=== PATIENT | female | born 1990 | race Hispanic/Latino ===

== ENCOUNTER 2018-01-19 14:36 | Emergency (ER) | payer OTHER ==
[2018-01-19] MEDS ORDERED: NACL 0.9% 1000 ML 1,000 ML IV ONE (15:17)
[2018-01-19] MEDS ORDERED: TORADOL IV ONE (15:17)
--- NOTE | 2018-01-19 15:20 | Emergency Department Report ---
Chief Complaint: Urogenital-Female Stated Complaint: LEFT BREAST PAIN Time Seen by Provider: 01/19/18 15:16 - HPI History of Present Illness: 27-year-old female, who is one month status post delivery, presents to the emergency department with a one-week history of left breast tenderness, redness and Robinul for fever. She says the temperature is gotten as high as 103F. She took some ibuprofen last night and some Tylenol about 2 hours ago. She called her [employer] MANAGER, Dr. Mendez, who told her to go to the emergency department for evaluation. - ROS Review of Systems: Positive for breast tenderness, breast redness, fever Negative for shortness of breath, nausea, vomiting - Exam Vital Signs: Vital Signs 01/19/18 14:56 Temperature 100.2 F H Pulse Rate 116 H Respiratory 20 Rate Blood Pressure 127/68 O2 Sat by Pulse 100 Oximetry Physical Exam: Patient is awake and alert and in no acute distress. Mild tachycardia. Heart and lung sounds are normal to Auscultation MSE screening note: Focused history and physical exam performed. Due to findings the following was ordered: I have ordered a CBC, BMP. The patient will have an IV placed and will get vancomycin and Toradol and IV fluid ED Disposition for MSE Condition: Stable
--- NOTE | 2018-01-19 15:21 | Emergency Department Report ---
- General Chief complaint: Urogenital-Female Stated complaint: LEFT BREAST PAIN Time Seen by Provider: 01/19/18 15:16 Source: patient Mode of arrival: Ambulatory Limitations: No Limitations - History of Present Illness MD complaint: other -: Gradual, days(s) Tetanus Up to Date: yes Location: chest (L BREAST) Severity: severe Quality: aching Consistency: constant Improves with: none Worsens with: none Context: other () Associated symptoms: chills Treatments Prior to Arrival: OTC topical medication, NSAID - Related Data Previous Rx's Medication Instructions Recorded Last Taken Type Ferrous Sulfate [Feosol 325 MG tab] 325 mg PO BID #90 tablet 12/10/17 Unknown Rx Ibuprofen [Motrin 800 MG tab] 800 mg PO TID PRN #30 tablet 12/10/17 Unknown Rx oxyCODONE /ACETAMINOPHEN [Percocet 1 - 2 tab PO Q4HR PRN #30 tablet 12/10/17 Unknown Rx 5/325 mg] Clindamycin [Clindamycin CAP] 300 mg PO Q6H #40 capsule 01/19/18 Unknown Rx Allergies Allergy/AdvReac Type Severity Reaction Status Date / Time No Known Allergies Allergy Verified 12/10/17 09:36 Abscess Boil HPI - HPI Chief Complaint: Urogenital-Female Stated Complaint: LEFT BREAST PAIN Time Seen by Provider: 01/19/18 15:16 Home Medications: Previous Rx's Medication Instructions Recorded Last Taken Type Ferrous Sulfate [Feosol 325 MG tab] 325 mg PO BID #90 tablet 12/10/17 Unknown Rx Ibuprofen [Motrin 800 MG tab] 800 mg PO TID PRN #30 tablet 12/10/17 Unknown Rx oxyCODONE /ACETAMINOPHEN [Percocet 1 - 2 tab PO Q4HR PRN #30 tablet 12/10/17 Unknown Rx 5/325 mg] Clindamycin [Clindamycin CAP] 300 mg PO Q6H #40 capsule 01/19/18 Unknown Rx Allergies/Adverse Reactions: Allergies Allergy/AdvReac Type Severity Reaction Status Date / Time No Known Allergies Allergy Verified 12/10/17 09:36 ED Review of Systems ROS: Stated complaint: LEFT BREAST PAIN Other details as noted in HPI Comment: All other systems reviewed and negative Constitutional: no symptoms reported, chills, fever Eyes: denies: eye pain ENT: denies: ear pain, throat pain Respiratory: denies: cough, orthopnea Cardiovascular: other (HR RETURNED TO < 100 FEVER DEC. ). denies: chest pain , palpitations, dyspnea on exertion, orthopnea Endocrine: denies: excessive sweating, flushing, intolerance to cold, intolerance to heat Gastrointestinal: denies: abdominal pain, nausea, vomiting Genitourinary: denies: urgency, dysuria Musculoskeletal: denies: back pain Skin: lesions (BREAST RED AND PAINFUL; QUIT BREAST FEEDING; NOW 1 M POST ) , other (L BREAST PAIN) Neurological: denies: headache, weakness Psychiatric: denies: anxiety, depression Hematological/Lymphatic: denies: easy bleeding ED Past Medical Hx - Past Medical History Hx Hypertension: No Hx Congestive Heart Failure: No Hx Diabetes: No Hx Deep Vein Thrombosis: No Hx Renal Disease: No Hx Sickle Cell Disease: No Hx Seizures: No Hx Asthma: No Hx COPD: No Hx HIV: No - Surgical History Past Surgical History?: Yes Additional Surgical History: C section - Family History Family history: no significant - Social History Smoking Status: Current Every Day Smoker Substance Use Type: None - Medications Home Medications: Home Medications Medication Instructions Recorded Confirmed Last Taken Type Ferrous Sulfate [Feosol 325 MG tab] 325 mg PO BID #90 tablet 12/10/17 Unknown Rx Ibuprofen [Motrin 800 MG tab] 800 mg PO TID PRN #30 tablet 12/10/17 Unknown Rx oxyCODONE /ACETAMINOPHEN [Percocet 1 - 2 tab PO Q4HR PRN #30 tablet 12/10/17 Unknown Rx 5/325 mg] Clindamycin [Clindamycin CAP] 300 mg PO Q6H #40 capsule 01/19/18 Unknown Rx ED Physical Exam - General Limitations: No Limitations General appearance: alert, in no apparent distress - Head Head exam: Present: normocephalic, normal inspection - Eye Eye exam: Present: PERRL. Absent: conjunctival injection - ENT ENT exam: Present: normal exam, mucous membranes moist - Neck Neck exam: Present: normal inspection, full ROM. Absent: tenderness, meningismus - Respiratory Respiratory exam: Present: normal lung sounds bilaterally - Cardiovascular Cardiovascular Exam: Present: regular rate, tachycardia (FEVER) - GI/Abdominal GI/Abdominal exam: Present: soft, normal bowel sounds. Absent: distended, tenderness, guarding, rebound, rigid, diminished bowel sounds - Rectal Rectal exam: Present: deferred - Extremities Exam Extremities exam: Present: normal inspection, full ROM. Absent: tenderness - Back Exam Back exam: Present: normal inspection, full ROM. Absent: tenderness, CVA tenderness (R), CVA tenderness (L) - Neurological Exam Neurological exam: Present: alert, oriented X3, CN II-XII intact, normal gait. Absent: altered - Psychiatric Psychiatric exam: Present: normal affect, normal mood. Absent: depressed, agitated - Skin Skin exam: Present: warm, dry, intact, normal color, erythema (L BREAST ), other (CELLULITIS L BREAST PT QUIT BREAST FEEDING 1 WEEK OR SO AGO; SHE IS 1 M POST . NO FLAT. THAT WOULD NEED I/D. NO NIPPLE DRAINAGE. NO DIMPLING). Absent: rash, cyanosis, diaphoretic, urticaria, vesicles, petechiae, pallor, abrasion, ecchymosis - Expanded Skin Exam Expanded 1 - MASTITIS BETWEEN 12-3 OF LEFT BREAST. NO FLAT FOR I/D. FIRM CELLULITIC TISSUE; NO DRAINAGE; NO NIPPLE DRAINAGE; NO DIMPLING. ED Course Vital Signs 01/19/18 01/19/18 14:56 18:05 Temperature 100.2 F H 99.4 F Pulse Rate 116 H 95 H Respiratory 20 17 Rate Blood Pressure 127/68 Blood Pressure 118/47 [Left] O2 Sat by Pulse 100 98 Oximetry - Reevaluation(s) Reevaluation #1: 01/19/18 18:26 ITCHING AND RASH ON CHEST P VANC PREDNISONE AND BENADRYL PO ABC INTACT VSS IMPROVING HR AND FEVER PT REPORTS DEC PAIN DR SMALL PHONED AND GIVEN UPDATE ON THE PT CONDITION WILL DC HOME CAN FOLLOW UP IN THE AM W OFFICE. ED Medical Decision Making - Lab Data Result diagrams: 01/19/18 15:59 01/19/18 15:59 - Medical Decision Making IV FLUIDS VANC IV WBC NOTED IMPROVED VS RELIABLE FOR FOLLOW UP DC HOME W POC - Differential Diagnosis MASTITIS/CELLULITIS Critical care attestation.: If time is entered above; I have spent that time in minutes in the direct care of this critically ill patient, excluding procedure time. ED Disposition Clinical Impression: Cellulitis of breast, mastitis Disposition: TO HOME OR SELFCARE Is pt being admited?: No Does the pt Need Aspirin: No Condition: Stable Instructions: Mastitis (ED) Additional Instructions: WARM COMPRESSES WILL HELP WITH THE PAIN PAIN MEDICATIONS INSTRUCTED SOAK WITH EPSOM SALTS 20 MINUTES THREE TIMES PER DAY FOR 20 MINUTES AT A TIME - WILL HELP SOOTH THE AREA ACTIVITY TOLERATED DIET TOLERATED ANTIBIOTIC INSTRUCTED. TAKE WITH FOOD. SEE DR SMALL THIS WEEK TO BE SURE THIS IS RESOLVING. Prescriptions: Clindamycin [Clindamycin CAP] 300 mg PO Q6H #40 capsule Referrals: NICK SMALL MD [Staff Physician] - 3-5 Days Time of Disposition: 16:52
[2018-01-19] MEDS ORDERED: VANCOMYCIN VIAL 1,500 MG in NACL 0.9% 500 ML 500 ML IV ONE (16:00)
[2018-01-19] MEDS ORDERED: VANCOMYCIN/NS 1 GM/250 ML 1 GM/250 ML BAG IV SCH (16:00)
[2018-01-19 16:26] LABS: Basophils # (Auto) 0.1 K/mm3 (0.0-0.1); Basophils % (Auto) 0.4 % (0.0-1.8); Eosinophils # (Auto) 0.2 K/mm3 (0.0-0.4); Eosinophils % (Auto) 1.1 % (0.0-4.3); Hematocrit 31.2 % (30.3-42.9); Hemoglobin 9.9 gm/dl (10.1-14.3); Lymphocytes # (Auto) 1.5 K/mm3 (1.2-5.4); Lymphocytes % (Auto) 9.2 % (13.4-35.0); Mean Corpuscular HGB Conc 32 % (30-34); Mean Corpuscular Volume 75 fl (79-97); Monocytes % (Auto) 5.7 % (0.0-7.3); Platelet Count 312 K/mm3 (140-440); Red Blood Count 4.17 M/mm3 (3.65-5.03); Red Cell Distribution Width 18.6 % (13.2-15.2)
[2018-01-19 16:37] LABS: Mean Corpuscular Hemoglobin 24 pg (28-32)
[2018-01-19 16:44] LABS: BUN/Creatinine Ratio 15; Blood Urea Nitrogen 6 mg/dL (7-17); Calcium 9.5 mg/dL (8.4-10.2); Hemolysis Index 0
[2018-01-19] MEDS ORDERED: NORCO 10/325 PO ONE (16:56)
[2018-01-19 18:07] VITALS: BP 118/47
[2018-01-19] MEDS ORDERED: DELTASONE PO ONE (18:25)
[2018-01-19] MEDS ORDERED: BENADRYL PO ONE (18:25)
== END 2018-01-19 18:41 | disposition home or self-care (01) ==
LOC: ED 14:36
DX: O91.22 Nonpurulent mastitis associated with the puerperium (principal); N61.0 Mastitis without abscess; F17.200 Nicotine dependence, unspecified, uncomplicated
CPT/HCPCS: 36415; 80048; 85025; 96365; 96375; 99283; J1885; J3370; J7030; J7040; J7512